=== PATIENT | male | born 1980 | race Caucasian/White ===

== ENCOUNTER 2017-06-17 10:56 | Emergency (ER) | payer MEDICAID ==
[2017-06-17 11:13] VITALS: BP 119/76; PULSE 87; RESP 16; TEMP 97.3; O2SAT 97
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
== END 2017-06-17 12:15 | disposition home or self-care (01) ==
DX: S63.502A Unspecified sprain of left wrist, initial encounter (principal); S53.402A Unspecified sprain of left elbow, initial encounter; Z87.891 Personal history of nicotine dependence; X58.XXXA Exposure to other specified factors, initial encounter; Y92.89 Other specified places as the place of occurrence of the external cause; Y99.8 Other external cause status; Y93.89 Activity, other specified

== ENCOUNTER 2017-06-18 08:32 | Emergency (ER) | payer MEDICAID ==
[2017-06-18] MEDS ORDERED: NS 1,000 ML IV ONE (08:44)
--- NOTE | 2017-06-18 08:53 | EDPHY ---
H & P Source: Patient Exam Limitations: No limitations - Medical/Surgical History Hx Asthma: No Hx Chronic Respiratory Disease: No Hx Diabetes: No Hx Cardiac Disease: No Hx Renal Disease: No Hx Cirrhosis: No Hx Alcoholism: No Hx HIV/AIDS: No Hx Splenectomy or Spleen Trauma: No Other PMH: tendon repair R 2nd finger - Social History Smoking Status: Former smoker Time Seen by Provider: 06/18/17 08:52 HPI/ROS: HPI: This is a 37-year-old male who presents with Chief Complaint: Nausea, vomiting Location: GI Quality: Nausea, vomiting Duration: Started at 2:00 a.m. This morning approximately 6 hr prior to arrival Signs and Symptoms: no fever, + nausea, + vomiting x3, no hematemesis, no blood in stool, no abdominal bloating, no diarrhea, no back pain, no urinary symptoms , no testicular/groin pain, no indigestion, no chest pain, no shortness of breath Timing: Acute, intermittent episodes Severity: [id number] Context: Patient is generally healthy, reports alcohol and polysubstance abuse , presents via EMS for complaints of sudden onset of nausea and 3 episodes of vomiting of stomach contents started around 2:00 a.m. This morning. Girlfriend also had similar symptoms. Denies fever/diarrhea/body aches/abdominal pain. Does complain of some abdominal generalized cramping before in during vomiting episodes. Has not eaten or drank anything today. No recent foreign travel/ antibiotic use. No concern for food borne illness. EMS gave patient IV Zofran with transient relief of symptoms Modifying Factors: Zofran Comment: ROS: see HPI Constitutional: No fever, no chills, no weight loss Eyes: No blurred vision Respiratory: No shortness of breath, no cough Cardiovascular: No chest pain, no palpitations Gastrointestinal: + nausea, + vomiting, no diarrhea, no hematemesis, no blood in stool Genitourinary: No dysuria, no blood in urine Extremities: No myalgias, no edema Neurologic: No weakness, no numbness Skin: No rashes, no petechiae Hematologic: No bruising, no bleeding MEDICAL/SURGICAL/SOCIAL HISTORY: Medical history: Generally healthy. Does not take any regular medications. 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 CONSTITUTIONAL: Extremely well-appearing adult male, awake and alert, no obvious distress HEENT: Atraumatic and normocephalic, PERRL, EOMI. Tympanic membranes clear. Oropharynx clear, no exudate and moist pink mucosa. Airway patent. No lymphadenopathy. No meningismus. Cardiovascular: Normal S1/S2, regular rate, regular rhythm, without murmur rub or gallop. PULMONARY/CHEST: Symmetrical and nontender. Clear to auscultation bilaterally. Good air movement. No accessory muscle usage. ABDOMEN: Soft, nondistended, nontender, no rebound, no guarding, no peritoneal signs, no masses or organomegaly. No CVAT. EXTREMITIES: 2/2 pulses, strength 5/5, no deformities, no clubbing, no cyanosis or edema. NEUROLOGICAL: no focal neuro deficits. GCS 15. SKIN: Warm and dry, no erythema. no rash. Good capillary refill. (Maddie Diallo) Constitutional: Initial Vital Signs Temperature (C) 36.6 C 06/18/17 08:32 Heart Rate 89 06/18/17 08:32 Respiratory Rate 16 06/18/17 08:32 Blood Pressure 120/78 06/18/17 08:32 O2 Sat (%) 96 06/18/17 08:32 O2 Delivery Mode Room Air Allergies/Adverse Reactions: No Known Allergies Allergy (Unverified 08/12/15 21:05) Home Medications: Medication Instructions Recorded Ondansetron Odt [Zofran Odt 4 mg 4 mg PO Q4 PRN #12 tab 06/18/17 (*)] Medical Decision Making ED Course/Re-evaluation: The patient was evaluated and managed by the physician's guest services assistant. My cosignature indicates that I reviewed the chart and I agree with the findings and plan of care as documented. I am the secondary supervising physician. ( Dary Lloyd) Labs, IV fluids, IV medications, urine drug screen ordered Given 1 L normal saline and IV promethazine 12.5 mg Vital signs reviewed upon arrival and stable. Abdomen soft and benign; doubt surgical abdomen. Will not proceed with imaging of the abdomen and pelvis. Passed p.o. Trial prior to discharge. This patient was seen under the supervision of my secondary supervising physician. I evaluated care for this patient independently. (Maddie Diallo) Differential Diagnosis: Differential diagnosis includes but is not limited to cholecystitis, appendicitis, gastroenteritis, urinary tract infection, alcohol intoxication, polysubstance abuse. (Maddie Diallo) - Data Points Laboratory Results: Laboratory Results 06/18/17 08:33 06/18/17 08:33 06/18/17 06/18/17 08:33 08:33 WBC 10.99 10^3/uL H 10^3/uL (3.80-9.50) RBC 5.14 10^6/uL 10^6/uL (4.40-6.38) Hgb 16.5 g/dL g/dL (13.7-17.5) Hct 46.9 % % (40.0-51.0) MCV 91.2 fL fL (81.5-99.8) MCH 32.1 pg pg (27.9-34.1) MCHC 35.2 g/dL g/dL (32.4-36.7) RDW 12.7 % % (11.5-15.2) Plt Count 240 10^3/uL 10^3/uL (150-400) MPV 9.7 fL fL (8.7-11.7) Neut % (Auto) 91.6 % H % (39.3-74.2) Lymph % (Auto) 3.5 % L % (15.0-45.0) [place] % (Auto) 3.5 % L % (4.5-13.0) Eos % (Auto) 0.5 % L % (0.6-7.6) Baso % (Auto) 0.4 % % (0.3-1.7) Nucleat RBC Rel Count 0.0 % % (0.0-0.2) Absolute Neuts (auto) 10.06 10^3/uL H 10^3/uL (1.70-6.50) Absolute Lymphs (auto) 0.39 10^3/uL L 10^3/uL (1.00-3.00) Absolute Monos (auto) 0.39 10^3/uL 10^3/uL (0.30-0.80) Absolute Eos (auto) 0.05 10^3/uL 10^3/uL (0.03-0.40) Absolute Basos (auto) 0.04 10^3/uL 10^3/uL (0.02-0.10) Absolute Nucleated RBC 0.00 10^3/uL 10^3/uL (0-0.01) Immature Gran % 0.5 % % (0.0-1.1) Immature Gran # 0.06 10^3/uL 10^3/uL (0.00-0.10) Sodium 141 mEq/L mEq/L (135-145) Potassium 4.4 mEq/L mEq/L (3.5-5.2) Chloride 101 mEq/L mEq/L (97-110) Carbon Dioxide 24 mEq/l mEq/l (22-31) Anion Gap 16 mEq/L mEq/L (8-16) BUN 15 mg/dL mg/dL (7-23) Creatinine 0.8 mg/dL mg/dL (0.7-1.3) Estimated GFR > 60 Glucose 98 mg/dL mg/dL (70-100) Calcium 8.8 mg/dL mg/dL (8.5-10.4) Total Bilirubin 1.0 mg/dL mg/dL (0.1-1.4) Conjugated Bilirubin 0.3 mg/dL mg/dL (0.0-0.5) Unconjugated Bilirubin 0.7 mg/dL mg/dL (0.0-1.1) AST 22 IU/L IU/L (17-59) ALT 46 IU/L IU/L (21-72) Alkaline Phosphatase 52 IU/L IU/L (38-126) Total Protein 7.6 g/dL g/dL (6.3-8.2) Albumin 4.7 g/dL g/dL (3.5-5.0) Lipase 140 IU/L IU/L (23-300) Medications Given: Discontinued Medications Sodium Chloride (Ns) 1,000 mls @ 0 mls/hr IV ONCE ONE PRN Reason: Wide Open Stop: 06/18/17 08:45 Last Admin: 06/18/17 08:45 Dose: 1,000 mls Promethazine HCl (Phenergan) 12.5 mg IVP EDNOW ONE Stop: 06/18/17 08:57 Last Admin: 06/18/17 09:14 Dose: 12.5 mg Departure - Departure Disposition: Home, Routine, Self-Care Clinical Impression: Viral gastroenteritis Condition: Good Instructions: Acute Nausea and Vomiting (ED), Viral Syndrome (ED) Additional Instructions: Consume a minimum of 8-10 glasses of water or electrolyte fluid replacement drinks that include Gatorade, Powerade, Pedialyte. Eat a bland diet for the next 48 hours and then slowly advance as tolerated. Take Zofran 1 tab every 4 hours as needed for nausea, vomiting. Return to the Emergency Room if symptoms do not resolve in the next 48-72 hours , you spike a fever > 102 F, or experience intractable abdominal pain/nausea/ vomiting. Referrals: [facility],. [Clinic] - As per Instructions Prescriptions: Ondansetron Odt [Zofran Odt 4 mg (*)] 4 mg PO Q4 PRN #12 tab PRN Reason: Nausea/Vomiting, Use 1st
[2017-06-18] MEDS ORDERED: PROMETHAZINE HCL 25 MG/ML INJ IVP ONE (08:56)
[2017-06-18 09:04] LABS: PLATELET COUNT 240 10^3/uL (150-400)
[2017-06-18 09:11] VITALS: TEMP 97.9
[2017-06-18 09:58] VITALS: BP 133/82; PULSE 96; RESP 18; O2SAT 98
== END 2017-06-18 09:58 | disposition home or self-care (01) ==
LOC: EDUNIT#
DX: A08.4 Viral intestinal infection, unspecified (principal); Z87.891 Personal history of nicotine dependence
CPT/HCPCS: 96374; J2550